=== PATIENT | female | born 1965 | race African-American/Black ===

== ENCOUNTER 2019-06-23 14:44 | Emergency (ER) | payer OTHER ==
[2019-06-23 14:53] VITALS: BP 115/75; PULSE 77; TEMP 97.9; BMI 29.2
--- NOTE | 2019-06-23 15:20 | PDOC ---
History of Present Illness - General Chief Complaint: Pain Stated Complaint: LT HAND INJURY Time Seen by Provider: 06/23/19 15:04 History Source: Patient Exam Limitations: No Limitations - History of Present Illness Initial Comments: 06/23/19 15:15 HISTORY OF PRESENT ILLNESS: 53-year-old woman presents emergency department for evaluation of left thumb pain which occurred today while repositioning a patient. 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 She denies any direct trauma or hyperextension of the thumb. No recent travel or sick contacts. PAST MEDICAL HISTORY: Denies past medical history SURGICAL HISTORY: Denies ALLERGIES: PCN REVIEW OF SYSTEMS General/Constitutional: Denies fever or chills. Denies weakness, weight change. HEENT: Denies change in vision. Denies ear pain or discharge. Denies sore throat. Cardiovascular: Denies chest pain or shortness of breath. Respiratory: Denies cough, wheezing, or hemoptysis. Gastrointestinal: Denies nausea, vomiting, diarrhea or constipation. Denies rectal bleeding. Genitourinary: Denies dysuria, frequency, or change in urination. Musculoskeletal: see HPI Skin and breasts: Denies rash or easy bruising. Neurologic: Denies headache, vertigo, loss of consciousness, or loss of sensation. Psychiatric: Denies depression or anxiety. Endocrine: Denies increased thirst. Denies abnormal weight change. Hematologic/Lymphatic: Denies anemia, easy bleeding, or history of blood clots. Allergic/Immunologic: Denies hives or skin allergy. Denies latex allergy. PHYSICAL EXAM General Appearance: Well-appearing, appropriately dressed. No apparent distress , no intoxication. Respiratory/Chest: Lungs CTAB. No shortness of breath, chest tenderness, respiratory distress, accessory muscle use. No crackles, rales, rhonchi, stridor , wheezing, dullness Cardiovascular: RRR. S1, S2. No JVD, murmur, bradycardia, tachycardia. Vascular Pulses: Radial (R): 2+, Radial (L): 2+ Musculoskeletal/Extremities: Normal inspection. FROM of all extremities, normal capillary refill. Pelvis Stable. No CVA tenderness. No tenderness to extremities, pedal edema, swelling, erythema or deformity. Increased pain with extension of thumb against resistance. Strength 5/5. Neurovascular intact. Integumentary: Appropriate color, dry, warm. No cyanosis, erythema, jaundice or rash Neurologic: sewing machinist II-XII intact. Fully oriented, alert. Appropriate mood/affect. Motor strength 5/5. No appreciable EOM palsy, facial droop or sensory deficit. Past History - Past Medical History Allergies/Adverse Reactions: Allergies Allergy/AdvReac Type Severity Reaction Status Date / Time Penicillins Allergy Verified 06/23/19 14:53 Home Medications: Ambulatory Orders Simvastatin 10 mg PO DAILY 06/23/19 COPD: No - Suicide/Smoking/Psychosocial Hx Smoking History: Never smoked Hx Alcohol Use: No *Physical Exam - Vital Signs Last Vital Signs Temp Pulse Resp BP Pulse Ox 97.9 F 77 18 115/75 99 06/23/19 14:50 06/23/19 14:50 06/23/19 14:50 06/23/19 14:50 06/23/19 14:50 ED Treatment Course - RADIOLOGY Radiology Studies Ordered: Category Date Time Status HAND- LEFT [RAD] Stat Radiology 06/23/19 15:15 Ordered Medical Decision Making - Medical Decision Making 06/23/19 15:20 A/P: 53-year-old woman with a left elbow pain status post moving a heavy patient Physical exam reveals likely tendinitis but this is a work-related injury I will get an x-ray of the hands rule out fracture or dislocation. 06/23/19 16:15 X-ray of the hand as read by me: No acute fractures or dislocations present. Tank wrap Discharge home to follow-up with orthopedist. 06/23/19 16:17 *DC/Admit/Observation/Transfer Diagnosis at time of Disposition: Thumb tendonitis - Discharge Dispostion Disposition: HOME Condition at time of disposition: Stable Decision to Admit order: No - Referrals Referrals: Андрей De La Rosa MD [Staff Physician] - - Patient Instructions Additional Instructions: Rest. Take Tylenol or Motrin as needed for pain. Follow manufacturers instructions for appropriate dosage. Apply ice for 20 minutes and removed for at least 20 minutes before reapplying the ice. You've been given the number for an orthopedist. If symptoms do not resolve within the next 7 days call the orthopedist for further evaluation. Return to emergency department for discoloration of the hand, numbness or tingling to the hand, worsening pain, or any other concerns. Thank you very much for choosing us to provide your emergent healthcare needs. - Post Discharge Activity Forms/Work/School Notes: Back to Work
== END 2019-06-23 16:30 | disposition home or self-care (01) ==
LOC: JERFT 14:44
DX: M77.9 Enthesopathy, unspecified (principal); X50.0XXA Overexertion from strenuous movement or load, initial encounter; Y93.F9 Activity, other caregiving; Y92.122 Bedroom in nursing home as the place of occurrence of the external cause; Y99.0 Civilian activity done for income or pay
CPT/HCPCS: 73130-TC-LT-FY; 99282-25

== ENCOUNTER 2022-12-05 10:29 | Emergency (ER) | payer OTHER ==
[2022-12-05 10:53] VITALS: TEMP 98; BMI 29.2
[2022-12-05] MEDS ORDERED: SODIUM CHLORIDE 0.9% 500 ML INFUS.BAG IV ONE (11:08)
[2022-12-05] MEDS ORDERED: METOCLOPRAMIDE HCL INJECTION 10 MG/2 ML VIAL IVPUSH ONE (11:12)
[2022-12-05] MEDS ORDERED: METOCLOPRAMIDE HCL INJECTION 10 MG/2 ML VIAL ONE (11:49)
[2022-12-05 11:56] LABS: BASO % 0.6 % (0-2.0); EOS % 0.5 % (0-4.5); HEMATOCRIT 38.2 % (32.4-45.2); HEMOGLOBIN 12.5 GM/dL (10.7-15.3); LYMPH % 33.2 % (8-40); MCH 28.6 pg (25.7-33.7); MCHC 32.7 g/dl (32.0-36.0); MEAN CELL VOLUME 87.4 fl (80-96); MEAN PLT VOLUME 7.3 fl (7.5-11.1); MONO % 8.7 % (3.8-10.2); PLATELET COUNT 273 10^3/uL (134-434); RBC 4.38 M/mm3 (3.60-5.2); RDW 12.7 % (11.6-15.6); WHITE BLOOD COUNT 3.5 K/mm3 (4.0-10.0)
[2022-12-05 12:05] LABS: INR 1.12 (0.83-1.09)
[2022-12-05 12:14] LABS: CALCIUM 9.7 mg/dL (8.5-10.1)
[2022-12-05 12:15] LABS: BLOOD UREA NITROGEN 14.3 mg/dL (7-18)
[2022-12-05 12:18] LABS: CREATININE 0.9 mg/dL (0.55-1.3)
[2022-12-05 12:20] LABS: BILIRUBIN,TOTAL 0.4 mg/dL (0.2-1); CHOLESTEROL 255 mg/dL (50-200); TOT PROT 7.9 g/dl (6.4-8.2)
[2022-12-05 12:21] LABS: LDL CHOLESTEROL (ONLY SJRH) 115 mg/dL (5-100); TRIGLYCERIDES 45 mg/dL (0-150)
[2022-12-05 12:23] LABS: HDL CHOLESTEROL 124 mg/dL (40-60)
[2022-12-05] MEDS ORDERED: ACETAMINOPHEN 1000 MG/100 ML BAG IVPB ONE (13:32)
[2022-12-05] MEDS ORDERED: ACETAMINOPHEN INJECTION 100 ML IVPB ONE (13:43)
[2022-12-05] MEDS ORDERED: MECLIZINE HCL 25 MG TABLET (FP) PO ONE (14:56)
[2022-12-05] MEDS ORDERED: MECLIZINE HCL 25 MG TABLET (FP) ONE (15:06)
[2022-12-05 16:34] VITALS: BP 132/82; PULSE 74; RESP 16
== END 2022-12-05 16:15 | disposition home or self-care (01) ==
LOC: JER 10:29
PROC: 3E0333Z Introduction of Anti-inflammatory into Peripheral Vein, Percutaneous Approach (ICD-10-PCS; principal; 2022-12-05)
PROC: 3E033GC Introduction of Other Therapeutic Substance into Peripheral Vein, Percutaneous Approach (ICD-10-PCS; 2022-12-05)
DX: R42 Dizziness and giddiness (principal)
CPT/HCPCS: 0241U-QW; 36415; 70450-TC; 70496-TC; 70498-TC; 71045-TC-FY; 80053; 80061; 82962; 83036; 83735; 83880; 84443; 84484; 85025; 85610; 85730; 93005; 93010; 99285-25